=== PATIENT | female | born 1975 | race Caucasian/White ===

== ENCOUNTER 2017-06-10 05:29 | Day surgery (SDC) | payer OTHER ==
[~2017-06-10] VITALS: Ht 165.1 cm; Wt 131.5 kg
--- NOTE | ~2017-06-10 | EKG ---
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
--- NOTE | ~2017-06-10 | S ---
[facility] [place] [address] SURGICAL PATH RPT PROCEDURE Name: MELVA STOCKTON Room #: DEP [facility].#: [id number] Admission: 06/10/17 Date of : 77 Discharge: 06/10/17 Report #: [id number] Path Case #: [id number] PATHOLOGY REPORT COLLECTION DATE: 06/10/2017 RECEIVED DATE: 06/10/2017 SUBMITTING PHYS: Dr. Javon Escobar OTHER PHYS: SPECIMEN(S) RECEIVED: A.Right tonsil and adenoids B.Left tonsil * * * * * * * * * * * * FINAL DIAGNOSIS: A. Right tonsil and adenoid, tonsillectomy and adenoidectomy: - Acutely inflamed epithelium overlying lymphoid tissue with reactive hyperplasia. B. Left tonsil, tonsillectomy: - Acutely inflamed epithelium overlying lymphoid tissue with reactive hyperplasia. PATHOLOGIST: Karli Hackett M.D. REPORT ELECTRONICALLY SIGNED BY: Karli Hackett M.D. DATE/TIME: 06/11/2017 14:57 * * * * * * * * * * * * GROSS PATHOLOGY: A. Received in formalin labeled "Melva Stockton, right tonsil and adenoids," is a tonsil measuring 3.7 x 2.6 x 1.9 cm in maximum dimensions and multiple pieces of costello lobulated lymphoid appearing tissue consistent with adenoids measuring 2.2 x 1.8 x 0.9 cm in aggregate dimensions. The mucosal surface of the tonsil is costello with the typical crypts identified. Sectioning reveals lobulated, homogeneous light costello cut surfaces with no grossly identifiable lesions. 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 B. Received in formalin, labeled "Melva Stockton, left tonsil," is a tonsil measuring 3.2 x 2.3 x 1.6 cm in maximum dimensions. The mucosal surface is costello with the typical crypts identified. Sectioning reveals lobulated, homogeneous light costello cut surfaces with no grossly identifiable lesions. Cured Meat Packing Supervisor tissue is submitted in cassette B1. (SDY; 06/10/2017) CLINICAL HISTORY: [facility] [place] [address] SURGICAL PATH RPT PROCEDURE Name: MELVA STOCKTON Room #: [facility] M.R.#: [id number] Admission: 06/10/17 Date of : 77 Discharge: 06/10/17 Report #: [id number] Path Case #: [id number] Chronic tonsillitis, adenoid hypertrophy, chronic sinusitis, griselda INITIAL CPT CODE(S): A; 59217 B; 69678 [facility] [address] [facility] [place] [address] Technical services performed by [facility] at [address] [place] [address], [facility] [address] [address]. [facility] [address] [address] PHONE: [phone] DIRECTOR: Maikol Melchor M.D. * * * END OF REPORT * * *
--- NOTE | ~2017-06-10 | H ---
[facility] [place] [address] [place] [address] HISTORY AND PHYSICAL Name: LLOYD CARRILLO Room #: 150-11 [facility]..#: [id number] Admission: 06/10/17 Attend Phys: Javon Escobar MD Discharge: Date of : 77 Report #: [id number] THIS REPORT FOR: //name// CC: FAM unknown Javon Escobar DATE OF SERVICE: 06/10/2017 HISTORY OF PRESENT ILLNESS: The patient has had a constant sore throat for 3 months. She has been diagnosed with strep tonsillitis on at least four occasions and given antibiotics. She has persistently swollen tonsils with difficulty breathing. She gets material from her tonsils frequently. She snores significantly. She has daytime somnolence consistent with obstructive sleep apnea. She has not had a sleep test. PAST MEDICAL HISTORY: Otherwise, significant for diabetes and high blood pressure. MEDICATIONS: Include metformin, pantoprazole and aspirin. ALLERGIES: She has no known drug allergies. PHYSICAL EXAMINATION: She has an adequate anterior nasal airway. She has 3+ enlarged tonsils with deep crypts and debris. A nasal endoscopy shows a very large adenoid, which blocks the posterior choana. IMPRESSION: Tonsil and adenoid hypertrophy with chronic tonsillitis and chronic sinusitis. She has symptoms of obstructive sleep apnea. PLAN: Tonsillectomy and adenoidectomy. <ELECTRONICALLY SIGNED> By: Javon Escobar MD 06/10/17 0906 [id number] Javon Escobar MD /kaley
--- NOTE | ~2017-06-10 | O ---
[facility] [place] [address] OPERATIVE REPORT Name: LLOYD CARRILLO Giana Room #: DEP [facility]#: [id number] Admission: 06/10/17 Attend Phys: Javon Escobar MD Discharge: 06/10/17 Date of : 77 Report #: [id number] THIS REPORT FOR: //name// CC: FAM unknown Javon Escobar DATE OF SERVICE: 06/10/2017 PREOPERATIVE DIAGNOSES: Chronic tonsillitis with tonsil and adenoid hypertrophy, obstructive sleep apnea. POSTOPERATIVE DIAGNOSES: Chronic tonsillitis with tonsil and adenoid hypertrophy, obstructive sleep apnea. OPERATIVE PROCEDURE: Tonsillectomy and adenoidectomy. ANESTHESIA: General endotracheal. PROCEDURE: The patient was taken to the operating room and placed in the supine position. General anesthesia was induced by endotracheal intubation. Once adequate general anesthesia was obtained, the patient was draped in a sterile manner. A Kary-Ifeanyi mouth gag was placed in the patient's mouth and the tongue was deviated upward. Red rubber catheters were placed through the nose, nasopharynx and out the form oropharynx and oral cavity to elevate the soft palate and the nasopharynx was visualized indirectly using a mirror, the adenoid was hypertrophied and adenoidectomy was performed by placing the adenoid curette at the base of the vomer and sweeping downward. The adenoid was removed and sent to pathology. Nasopharyngeal packing was placed. The right tonsil was grasped and deviated towards midline and an incision was placed in the anterior tonsillar pillar using the Bovie electrocautery and a plane between tonsillar capsule and tonsillar fossa was established. Dissection was carried out in this plane using the Bovie and hemostasis was achieved during the dissection. Dissection was carried out from superior to inferior. The inferior pole was incised. The posterior tonsillar mucosa was incised. The tonsil was removed and sent to pathology. The left tonsil was removed in exactly the same manner. The area was then irrigated with normal saline. Hemostasis was verified in the tonsillar beds. The nasopharyngeal packing was removed. The nasopharynx was irrigated and there was adequate hemostasis in the nasopharynx as well. The throat pack, mouth gag and red rubber catheters were all removed. The patient tolerated the procedure well. Blood loss approximately 10 mL. The patient was then awoken and taken to the recovery room in stable condition for postoperative monitoring. <ELECTRONICALLY SIGNED> By: Javon Escobar MD 06/13/17 1332 [id number] [id number] Javon Escobar MD /nt
[~2017-06-10 05:29] MED LIST: ASPIR 8181 M1 PO; COZAAR 50 MG TA50 M2 PO; FLONASE 0.05%50 MCG NASAL; METFORMIN HCL500 MG PO; PRENATAL VITAM1 EAC8 PO; PROTONIX40 M1 PO
[2017-06-10 07:37] VITALS: BP 146/91
[2017-06-10 09:57] VITALS: BP 146/91
== END 2017-06-10 11:43 | disposition home or self-care (01) ==
LOC: OR 05:29 → TBA 05:29 → OR 09:42 → EDSTATUS 09:53 → OR 09:55
DX: J35.01 Chronic tonsillitis (principal); J35.3 Hypertrophy of tonsils with hypertrophy of adenoids; G47.33 Obstructive sleep apnea (adult) (pediatric); I10 Essential (primary) hypertension; E11.9 Type 2 diabetes mellitus without complications; K21.9 Gastro-esophageal reflux disease without esophagitis; Z79.82 Long term (current) use of aspirin; Z79.899 Other long term (current) drug therapy; Z90.49 Acquired absence of other specified parts of digestive tract; Z98.890 Other specified postprocedural states
CPT/HCPCS: 50010; 50101; 62110; 62900; 64031; 64032; 70005